=== PATIENT | male | born 1965 | race Hispanic/Latino ===

== ENCOUNTER → 2025-06-04 | Outpatient (CLI) | payer MEDICAID ==
--- NOTE | 2025-06-05 06:45 | HMCIMG ---
EXAMINATION: ULTRASOUND OF THE ABDOMEN (LIMITED) WITH COLOR DOPPLER. CLINICAL HISTORY: Abnormal LFT. COMPARISON: None. TECHNIQUE: Real-time grayscale ultrasound images of the abdomen. In addition, color Doppler is medically necessary to perform in order to evaluate vascularity and blood flow. FINDINGS: Liver: Bulky in caliber, the right hepatic lobe measures 16.6 cm in the craniocaudal dimension. There is increased echogenicity of the hepatic parenchyma. There is no focal hepatic abnormality or intrahepatic biliary ductal dilatation. There is normal spectral Doppler of the main portal vein. Gallbladder: Within normal limits with normal wall thickness (0.26 cm). No hyperemia or pericholecystic free fluid. There is no cholelithiasis. Common bile duct is normal in caliber, measuring 0.23 cm. Pancreas: Normal in caliber and echotexture. No calcification or dilated pancreatic duct. The right kidney is normal in caliber, the right kidney measures 11.2 x 6.7 x 6.2 cm in craniocaudal, AP, and transverse dimensions respectively. There is normal renal cortical thickness, and cortical echogenicity. There is no renal calculus or hydronephrosis. IMPRESSION: Hepatomegaly with hepatic steatosis. /[place]
== END | disposition home or self-care (01) ==
LOC: RAH 10:03
PROVIDERS: ATTEND Internal Medicine
DX: K76.0 Fatty (change of) liver, not elsewhere classified (principal); R94.5 Abnormal results of liver function studies; R16.0 Hepatomegaly, not elsewhere classified
CPT/HCPCS: 76705

== ENCOUNTER → 2025-08-15 | Outpatient (CLI) | payer MEDICAID ==
--- NOTE | 2025-08-15 15:47 | HMCIMG ---
History: Pain. Technique: Ap and lateral views of the knees bilaterally submitted for interpretation. Knee series Comparison: None Findings: There is no acute fracture or dislocation. The soft tissues are unremarkable. There are no erosive changes seen. Narrowing of the joint space is noted which suggest arthritis. There is hypertrophic bony formation which is consistent with underlying chronic arthritic change. There is no joint effusion Impression: 1.Degenerative changes of the knees bilaterally with no acute fracture identified. . 2.If there is concern for meniscal or ligamentous injury , consider MRI evaluation. /[place]
== END | disposition home or self-care (01) ==
LOC: RAH 08:03
PROVIDERS: ATTEND Internal Medicine
DX: M17.0 Bilateral primary osteoarthritis of knee (principal)